=== PATIENT | male | born 1945 | race Caucasian/White ===

== ENCOUNTER 2023-07-25 10:57 | Outpatient (AMB) | payer MEDICARE, OTHER, SELFPAY ==
[2023-07-25 11:02] VITALS: BP 118/58; PULSE 54; RESP 14; O2SAT 100; BMI 21.9
--- NOTE | 2023-07-25 11:02 | A.OFFVIS_ITS ---
Intake Vital Signs 3 07/25/23 11:02 Height 5 ft 7 in Weight 140 lb 2 oz BMI 21.9 BP 118/58 L Blood Pressure Location Lt brachial Position Sitting Respiration 14 Pulse 54 Pulse Source Pulse Oximeter Pulse Oximetry (%) 100 Oxygen Delivery Method Room Air Intake Visit Reasons: BACK AND LEG PAIN Allergies Penicillins Adverse Reaction (Intermediate, Verified 07/25/23 11:01) rash HPI HPI Comments 2 History of Present Illness0 Details Jono is a very pleasant 78 year old male who was referred her by [facility] for evaluation and management of his right foot drop. Patient denies any pain. He reports since April 2023 he has been suffering with right foot drop without numbness, tingling, pins/needles of the RLE. 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 No significant central canal stenosis. The plan according to the referral was to send him here to be evaluated for lumbar JOLYNN for right foot drop. He has not had EMG and he has not been fitted for ASO brace. He has been going to PT with some improvement but states no significant change where he feels positive that PT is working. He is doing HEP also. Patient states he was able to clear leaves and shovel his 700ft driveway last week. He does state that walking is impaired as he has to make a conscious effort to ensure his foot does not drag and cause a fall. He has researched JOLYNN online, aware there are some risks associated with all injections. He would prefer to have injections if there is some certainty that we are treating the root cause of his foot drop. Review of Systems Const All systems reviewed & are unremarkable except as noted in HPI and below Physical Exam Vital Signs: Last Vital Signs Pulse 54 07/25/23 11:02 Resp 14 07/25/23 11:02 BP 118/58 L 07/25/23 11:02 Pulse Ox 100 07/25/23 11:02 Oxygen Delivery Method Room Air 07/25/23 11:02 BMI result Body Mass Index 21.9 General: awake, alert, oriented. Answers questions appropriately. Fully engaged in examination. Skin: warm, dry, intact HEENT: Normocephalic. Hearing intact. Cardiac: External chest normal in appearance. Respiratory: No cough, audible wheezing or stridor. Abdomen: without gross distension. MS: No obvious swelling or deformities. Able to transition from sit to stand unassisted. +foot drop on right BLE reflexes intact BLE strength 5/5 with reported weakness right hip flexion. No pain with I/E rotation right hip. BLE light touch sensation intact LS exam unremarkable Neurological: Oriented to person, place, time and situation. Thought process intact. Psychiatric: Appropriate mood and affect. Good judgment and insight. Results Reviewed Results Reviewed: 03/2023 Assessment & Plan Assessment & Plan (1) Foot drop, right: Code(s): M21.371 - Foot drop, right foot (2) Left leg paresthesias: Code(s): R20.2 - Paresthesia of skin Plan Jono is a very pleasant 78 year old male who presented to the office today, accompanied by his , for evaluation and management of his right foot drop. Patient adamantly denies pain in lumbar spine or in either lower extremity. EMG ordered for further evaluation. Ortho referral placed for fitting of ASO brace to help preserve function. Pending results of EMG, will consider diagnostic injection, steroid injection, PNS or more permanent neuromodulation. Patient will follow up in the office after EMG, sooner if needed. Orders: Orders 2 NE electromyogram (EMG) 07/25/23 M21.371 - Foot drop, right foot, R20.2 - Paresthesia of skin Referrals 2 Orthopedics Referral M21.371 - Foot drop, right foot Coding Level of Care Code New Pt Level 4 (79555) Diagnoses Foot drop, right M21.371 Left leg paresthesias R20.2
== END 2023-07-25 12:37 | disposition home or self-care (01) ==
PROVIDERS: PCP Internal Medicine; Visit Provider Registered Nurse Emergency
DX: M21.371 Foot drop, right foot (principal); R20.2 Paresthesia of skin
CPT/HCPCS: 99204

== ENCOUNTER → 2023-07-25 10:57 | Outpatient (BNVA) | payer BC, SELFPAY | PROVIDERS: PCP Internal Medicine; Visit Provider Registered Nurse Emergency ==